=== PATIENT | male | born 1955 | race Caucasian/White ===

== ENCOUNTER 2019-09-11 13:17 | Inpatient (IN) ==
[2019-09-11] MEDS ORDERED: SODIUM CHLORIDE 0.9% 1,000 ML IV STA (14:31)
[2019-09-11] MEDS ORDERED: ONDANSETRON 4 MG/2 ML VIAL IV STA (14:31)
[2019-09-11] MEDS ORDERED: MORPHINE 4 MG/1 ML VIAL IV STA (14:31)
[2019-09-11 14:39] LABS: Basophils # 0.1 10*3/uL (0.0-0.2); Basophils % 0.9 % (0.0-0.8); Eosinophils % 0.2 % (0.00-10.9); Hematocrit 35.7 VOL% (42.0-52.0); Immature Granulocytes % 4.8 %; Immature Granulocytes Absolute 0.49 #; Lymphocytes # 1.8 10*3/uL (1.4-4.0); Mean Corpuscular HGB Conc 33.6 GM/DL (32-36); Mean Corpuscular Volume 88.8 FL (87-102); Monocytes % 10.7 % (1.7-12.7); Neutrophils % 65.4 % (38.7-73.9); Platelet Count 297 T/CUMM (130-400); Red Blood Count 4.02 MC/CUMM (3.8-5.5); Red Cell Distribution Width 13.3 % (9.3-17.3); White Blood Count 10.2 T/CUMM (4-12)
[2019-09-11 15:08] LABS: Albumin 2.4 G/DL (3.4-5.0); Bilirubin,Total 0.8 MG/DL (0.2-1.0); Calcium 9.4 MG/DL (8.5-10.1); Osmolality,Calculated 275.7 MOS/KG (273-304); Total Protein 7.2 G/DL (6.4-8.3)
[2019-09-11] MEDS ORDERED: ENOXAPARIN 100 MG/ML SYRINGE SUBCUT STA (18:12)
[2019-09-11] MEDS ORDERED: cefTRIAXone 1,000 MG in SODIUM CHLORIDE 0.9% 100 ML IV STA (18:12)
[2019-09-11] MEDS ORDERED: oxyCODONE/ACETAMINOPHEN 5-325 MG TABLET PO PRN (18:12)
[2019-09-11] MEDS ORDERED: ONDANSETRON 4 MG TABLET PO PRN (18:12)
[2019-09-11] MEDS ORDERED: DEXTROSE 50% 25 GM/50 ML VIAL IV PRN (20:43)
[2019-09-11] MEDS ORDERED: ONDANSETRON 4 MG/2 ML VIAL IV PRN (20:43)
[2019-09-11] MEDS ORDERED: ACETAMINOPHEN 325 MG TABLET PO PRN (20:43)
[2019-09-11] MEDS ORDERED: GLUCAGON 1 MG VIAL IM PRN (20:43)
[2019-09-11] MEDS ORDERED: SIMVASTATIN 80 MG TABLET PO SCH (21:00)
[2019-09-11] MEDS ORDERED: GLIMEPIRIDE 4 MG TABLET PO SCH (21:00)
[2019-09-11] MEDS: DOCUSATE SODIUM 100 MG CAPSULE PO SCH (21:33)
[2019-09-11] MEDS: MORPHINE 4 MG/1 ML VIAL IV PRN (21:33)
[2019-09-11] MEDS: INSULIN REGULAR 100 UNIT/ML SUBCUT SCH (21:36)
[2019-09-11] MEDS: CLINDAMYCIN INJ 900 MG in PREMIX 1 EACH IV SCH (23:36)
[2019-09-12] MEDS: CLINDAMYCIN INJ 900 MG in PREMIX 1 EACH IV SCH ×3 (05:41→21:45)
[2019-09-12] MEDS: INSULIN REGULAR 100 UNIT/ML SUBCUT SCH ×4 (08:33→21:10)
[2019-09-12] MEDS: DOCUSATE SODIUM 100 MG CAPSULE PO SCH ×2 (08:35→21:10)
[2019-09-12] MEDS: PANTOPRAZOLE 40 MG TABLET PO SCH (08:35)
[2019-09-12] MEDS: sitaGLIPtin 100 MG TABLET PO SCH (08:35)
[2019-09-12] MEDS: RIVAROXABAN 15 MG TABLET PO SCH ×2 (08:35→16:41)
[2019-09-12] MEDS ORDERED: lisinopriL 2.5 MG TABLET PO SCH (09:00)
[2019-09-12] MEDS ORDERED: FLUTICASONE 50 MCG NASAL SPRAY 16 GM BOTTLE BOTH NARES SCH (09:00)
[2019-09-12] MEDS ORDERED: TAMSULOSIN 0.4 MG CAPSULE PO SCH (09:00)
[2019-09-12] MEDS ORDERED: INSULIN GLARGINE 100 UNIT/ML SUBCUT SCH (09:00)
[2019-09-12] MEDS: MORPHINE 4 MG/1 ML VIAL IV PRN ×2 (12:57→21:19)
[2019-09-12] MEDS: cefTRIAXone 1,000 MG in SYRINGE 1 EACH IV SCH (21:10)
[2019-09-13] MEDS: CLINDAMYCIN INJ 900 MG in PREMIX 1 EACH IV SCH ×3 (06:12→21:46)
[2019-09-13] MEDS: MORPHINE 4 MG/1 ML VIAL IV PRN ×2 (06:13→20:07)
[2019-09-13] MEDS: INSULIN REGULAR 100 UNIT/ML SUBCUT SCH ×3 (08:12→16:05)
[2019-09-13] MEDS: sitaGLIPtin 100 MG TABLET PO SCH (08:35)
[2019-09-13] MEDS: DOCUSATE SODIUM 100 MG CAPSULE PO SCH ×2 (08:35→20:05)
[2019-09-13] MEDS: RIVAROXABAN 15 MG TABLET PO SCH ×2 (08:35→16:05)
[2019-09-13] MEDS: PANTOPRAZOLE 40 MG TABLET PO SCH (08:35)
[2019-09-13] MEDS ORDERED: OXYBUTYNIN 5 MG TABLET PO PRN (10:25)
[2019-09-13] MEDS: cefTRIAXone 1,000 MG in SYRINGE 1 EACH IV SCH (20:01)
[2019-09-14] MEDS: INSULIN REGULAR 100 UNIT/ML SUBCUT SCH ×5 (03:38→21:17)
[2019-09-14] MEDS: CLINDAMYCIN INJ 900 MG in PREMIX 1 EACH IV SCH ×3 (05:31→21:39)
[2019-09-14] MEDS: RIVAROXABAN 15 MG TABLET PO SCH ×2 (09:05→17:41)
[2019-09-14] MEDS: PANTOPRAZOLE 40 MG TABLET PO SCH (09:05)
[2019-09-14] MEDS: DOCUSATE SODIUM 100 MG CAPSULE PO SCH ×2 (09:05→21:14)
[2019-09-14] MEDS: sitaGLIPtin 100 MG TABLET PO SCH (09:05)
[2019-09-14 09:57] LABS: Basophils # 0.1 10*3/uL (0.0-0.2); Basophils % 0.8 % (0.0-0.8); Eosinophils # 0.1 10*3/uL (0.0-0.87); Eosinophils % 0.7 % (0.00-10.9); Hematocrit 26.6 VOL% (42.0-52.0); Hemoglobin 9.1 GM/DL (14.0-18.0); Immature Granulocytes % 7.1 %; Immature Granulocytes Absolute 0.82 #; Lymphocytes # 1.3 10*3/uL (1.4-4.0); Lymphocytes % 10.9 % (21.2-54.2); Mean Corpuscular HGB Conc 34.2 GM/DL (32-36); Mean Corpuscular Volume 87.2 FL (87-102); Mean Platelet Volume 11.1 FL (9.6-12.0); Monocytes % 11.9 % (1.7-12.7); Neutrophils % 68.6 % (38.7-73.9); Platelet Count 280 T/CUMM (130-400); Red Blood Count 3.05 MC/CUMM (3.8-5.5); Red Cell Distribution Width 13.4 % (9.3-17.3); White Blood Count 11.6 T/CUMM (4-12)
[2019-09-14 10:15] LABS: Albumin 1.9 G/DL (3.4-5.0); Bilirubin,Total 0.6 MG/DL (0.2-1.0); Calcium 8.4 MG/DL (8.5-10.1); Osmolality,Calculated 266.7 MOS/KG (273-304); Total Protein 6.2 G/DL (6.4-8.3)
[2019-09-14 10:16] LABS: Band Neutrophils 1 % (0-10); Hypochromasia 1+; Lymphocytes 15 % (20-55); Ovalocytes Slight; Platelet Estimate Adequate; Segmented Neutrophils 77 % (50-85); Total Cells Counted 100
[2019-09-14 18:25] LABS: Apearance,Urine Slightly Hazy (Clear); Bilirubin,Urine Negative (Negative); Blood, Urine Large mg/dL (Negative); Glucose,Urine (UA) >=500 mg/dL (Negative); Ketones,Urine 20 mg/dL (Negative); Mucus,Urine Occasional /LPF (Occasional); Nitrite,Urine Negative (Negative); Protein,Urine 100 MG/DL; RBC,Urine 2687 /HPF (0-4); Squamous Epithelial Cell,Urine Occasional /HPF (0-10); Urine Color Amber (Yellow); Urine Specific Gravity 1.023 (1.001-1.035)
[2019-09-14] MEDS: cefTRIAXone 1,000 MG in SYRINGE 1 EACH IV SCH (21:14)
[2019-09-14] MEDS: MORPHINE 4 MG/1 ML VIAL IV PRN (21:33)
[2019-09-15] MEDS: CLINDAMYCIN INJ 900 MG in PREMIX 1 EACH IV SCH ×3 (06:00→22:02)
[2019-09-15] MEDS: INSULIN REGULAR 100 UNIT/ML SUBCUT SCH ×4 (07:57→22:00)
[2019-09-15] MEDS: sitaGLIPtin 100 MG TABLET PO SCH (08:51)
[2019-09-15] MEDS: DOCUSATE SODIUM 100 MG CAPSULE PO SCH ×2 (08:52→20:15)
[2019-09-15] MEDS: PANTOPRAZOLE 40 MG TABLET PO SCH (08:52)
[2019-09-15] MEDS: RIVAROXABAN 15 MG TABLET PO SCH ×2 (08:52→16:42)
[2019-09-15] MEDS: MORPHINE 4 MG/1 ML VIAL IV PRN (13:37)
[2019-09-15] MEDS: cefTRIAXone 1,000 MG in SYRINGE 1 EACH IV SCH (20:16)
[2019-09-16] MEDS: CLINDAMYCIN INJ 900 MG in PREMIX 1 EACH IV SCH ×3 (06:07→21:30)
[2019-09-16 06:21] LABS: Basophils # 0.1 10*3/uL (0.0-0.2); Eosinophils # 0.1 10*3/uL (0.0-0.87); Eosinophils % 0.9 % (0.00-10.9); Hematocrit 25.9 VOL% (42.0-52.0); Hemoglobin 8.6 GM/DL (14.0-18.0); Immature Granulocytes % 7.2 %; Immature Granulocytes Absolute 0.82 #; Lymphocytes # 1.4 10*3/uL (1.4-4.0); Lymphocytes % 12.4 % (21.2-54.2); Mean Corpuscular HGB Conc 33.2 GM/DL (32-36); Mean Corpuscular Volume 89.3 FL (87-102); Mean Platelet Volume 11.4 FL (9.6-12.0); Monocytes % 11.6 % (1.7-12.7); Neutrophils % 66.9 % (38.7-73.9); Platelet Count 319 T/CUMM (130-400); Red Cell Distribution Width 13.1 % (9.3-17.3); White Blood Count 11.4 T/CUMM (4-12)
[2019-09-16 06:50] LABS: Band Neutrophils 1 % (0-10); Hypochromasia 1+; Lymphocytes 10 % (20-55); Osmolality,Calculated 270.2 MOS/KG (273-304); Ovalocytes Slight; Platelet Estimate Adequate; Segmented Neutrophils 75 % (50-85); Total Cells Counted 100
[2019-09-16 06:51] LABS: Microcytosis Slight
[2019-09-16] MEDS: INSULIN REGULAR 100 UNIT/ML SUBCUT SCH ×4 (08:36→20:14)
[2019-09-16] MEDS ORDERED: POTASSIUM CHLORIDE 20 MEQ TABLET PO PRN (08:37)
[2019-09-16] MEDS: DOCUSATE SODIUM 100 MG CAPSULE PO SCH ×2 (08:39→20:14)
[2019-09-16] MEDS: sitaGLIPtin 100 MG TABLET PO SCH (08:39)
[2019-09-16] MEDS: RIVAROXABAN 15 MG TABLET PO SCH (08:39)
[2019-09-16] MEDS: PANTOPRAZOLE 40 MG TABLET PO SCH (08:39)
[2019-09-16] MEDS: POLYETHYLENE GLYCOL POWDER 17 GM PACK PO SCH (08:41)
[2019-09-16] MEDS ORDERED: SODIUM CHLORIDE 0.9% 500 ML IV ONE (10:44)
[2019-09-16] MEDS ORDERED: PANTOPRAZOLE 40 MG VIAL IV ONE (11:18)
[2019-09-16] MEDS ORDERED: SODIUM CHLORIDE 0.9% 1,000 ML IV PRN ×2 (11:21→12:12)
[2019-09-16] MEDS: SODIUM CHLORIDE 0.9% 1,000 ML IV SCH ×3 (11:24→22:42)
[2019-09-16 11:40] LABS: Basophils # 0.1 10*3/uL (0.0-0.2); Basophils % 0.7 % (0.0-0.8); Eosinophils % 0.2 % (0.00-10.9); Hematocrit 23.9 VOL% (42.0-52.0); Hemoglobin 7.8 GM/DL (14.0-18.0); Immature Granulocytes % 6.2 %; Immature Granulocytes Absolute 0.99 #; Lymphocytes # 2.2 10*3/uL (1.4-4.0); Lymphocytes % 13.7 % (21.2-54.2); Mean Corpuscular HGB Conc 32.6 GM/DL (32-36); Mean Corpuscular Volume 89.8 FL (87-102); Mean Platelet Volume 11.4 FL (9.6-12.0); Monocytes % 10.2 % (1.7-12.7); Platelet Count 369 T/CUMM (130-400); Red Blood Count 2.66 MC/CUMM (3.8-5.5); Red Cell Distribution Width 13.2 % (9.3-17.3); White Blood Count 15.9 T/CUMM (4-12)
[2019-09-16] MEDS ORDERED: NOREPINEPHRINE 8 MG in SODIUM CHLORIDE 0.9% 242 ML IV PRN (11:58)
[2019-09-16] MEDS ORDERED: SODIUM CHLORIDE 0.9% 1,000 ML IV ONE (11:58)
[2019-09-16 12:06] LABS: Band Neutrophils 4 % (0-10); Eosinophils 1 % (0-10); Hypochromasia 1+; Lymphocytes 8 % (20-55); Metamyelocytes 1 %; Microcytosis Slight; Platelet Estimate Normal; Segmented Neutrophils 73 % (50-85); Total Cells Counted 100
[2019-09-16 12:07] LABS: Calcium 7.8 MG/DL (8.5-10.1); Osmolality,Calculated 275.2 MOS/KG (273-304)
[2019-09-16] MEDS: PANTOPRAZOLE INJ 200 MG in SODIUM CHLORIDE 0.9% 250 ML IV SCH (12:55)
[2019-09-16] MEDS ORDERED: PROTHROMBIN COMPLEX IV ONE (13:00)
[2019-09-16] MEDS ORDERED: EPINEPHrine 1 MG/ML VIAL ONE (15:06)
[2019-09-16] MEDS ORDERED: LIDOCAINE 2% 5 ML VIAL ONE (16:36)
[2019-09-16] MEDS ORDERED: SEVOFLURANE 1 UNIT/15 MINUTE INH ONE (16:36)
[2019-09-16] MEDS ORDERED: SUCCINYLCHOLINE 200 MG/10 ML VIAL ONE (16:38)
[2019-09-16] MEDS ORDERED: ONDANSETRON 4 MG/2 ML VIAL ONE (16:38)
[2019-09-16] MEDS ORDERED: MIDAZOLAM 2 MG/2 ML VIAL ONE (16:38)
[2019-09-16] MEDS ORDERED: fentaNYL 100 MCG/2 ML VIAL ONE (16:38)
[2019-09-16] MEDS ORDERED: ETOMIDATE 40 MG/20 ML VIAL IV ONE (16:38)
[2019-09-16] MEDS: METOCLOPRAMIDE 10 MG/2 ML VIAL IV SCH ×2 (18:25→23:53)
[2019-09-16 18:31] LABS: Hematocrit 36.9 VOL% (42.0-52.0)
[2019-09-16 18:32] LABS: Hemoglobin 12.5 GM/DL (14.0-18.0)
[2019-09-16] MEDS: MORPHINE 4 MG/1 ML VIAL IV PRN (18:50)
[2019-09-16] MEDS: cefTRIAXone 1,000 MG in SYRINGE 1 EACH IV SCH (20:13)
[2019-09-17] MEDS: MORPHINE 4 MG/1 ML VIAL IV PRN ×2 (00:21→23:09)
[2019-09-17] MEDS: SODIUM CHLORIDE 0.9% 1,000 ML IV SCH ×4 (02:53→21:40)
[2019-09-17] MEDS: CLINDAMYCIN INJ 900 MG in PREMIX 1 EACH IV SCH ×3 (06:00→21:40)
[2019-09-17] MEDS: METOCLOPRAMIDE 10 MG/2 ML VIAL IV SCH ×4 (06:20→23:45)
[2019-09-17] MEDS: INSULIN REGULAR 100 UNIT/ML SUBCUT SCH ×4 (07:55→20:19)
[2019-09-17] MEDS: POLYETHYLENE GLYCOL POWDER 17 GM PACK PO SCH (08:01)
[2019-09-17] MEDS: DOCUSATE SODIUM 100 MG CAPSULE PO SCH ×2 (08:01→20:19)
[2019-09-17] MEDS: sitaGLIPtin 100 MG TABLET PO SCH (08:01)
[2019-09-17 08:20] LABS: Basophils # 0.2 10*3/uL (0.0-0.2); Basophils % 0.7 % (0.0-0.8); Eosinophils % 0.1 % (0.00-10.9); Hematocrit 27.3 VOL% (42.0-52.0); Immature Granulocytes % 5.7 %; Immature Granulocytes Absolute 1.15 #; Lymphocytes # 2.3 10*3/uL (1.4-4.0); Lymphocytes % 11.3 % (21.2-54.2); Mean Corpuscular HGB Conc 33.7 GM/DL (32-36); Mean Corpuscular Volume 89.2 FL (87-102); Mean Platelet Volume 11.9 FL (9.6-12.0); Monocytes % 9.3 % (1.7-12.7); Neutrophils % 72.9 % (38.7-73.9); Red Blood Count 3.06 MC/CUMM (3.8-5.5)
[2019-09-17 08:24] LABS: Hemoglobin 9.2 GM/DL (14.0-18.0); Platelet Count 214 T/CUMM (130-400)
[2019-09-17 08:47] LABS: Band Neutrophils 3 % (0-10); Burr Cells Slight; Hypochromasia Slight; Lymphocytes 7 % (20-55); Metamyelocytes 1 %; Microcytosis Slight; Segmented Neutrophils 82 % (50-85); Total Cells Counted 100
[2019-09-17 08:49] LABS: Platelet Estimate Normal
[2019-09-17] MEDS: PANTOPRAZOLE INJ 200 MG in SODIUM CHLORIDE 0.9% 250 ML IV SCH (12:25)
[2019-09-17 17:09] LABS: Hematocrit 26.8 VOL% (42.0-52.0); Hemoglobin 9.1 GM/DL (14.0-18.0)
[2019-09-17 17:26] LABS: INR 1.2; PT Patient Result 12.9 SECS (9.8-11.9)
[2019-09-17] MEDS: cefTRIAXone 1,000 MG in SYRINGE 1 EACH IV SCH (20:10)
[2019-09-17 23:59] LABS: Hematocrit 28.4 VOL% (42.0-52.0); Hemoglobin 9.5 GM/DL (14.0-18.0)
[2019-09-18 05:22] LABS: Basophils # 0.1 10*3/uL (0.0-0.2); Basophils % 0.7 % (0.0-0.8); Eosinophils # 0.1 10*3/uL (0.0-0.87); Eosinophils % 0.5 % (0.00-10.9); Immature Granulocytes % 5.1 %; Immature Granulocytes Absolute 0.83 #; Lymphocytes # 2.6 10*3/uL (1.4-4.0); Lymphocytes % 16.1 % (21.2-54.2); Mean Corpuscular HGB Conc 33.3 GM/DL (32-36); Mean Corpuscular Volume 88.5 FL (87-102); Mean Platelet Volume 11.3 FL (9.6-12.0); Monocytes % 7.4 % (1.7-12.7); Neutrophils % 70.2 % (38.7-73.9); Platelet Count 197 T/CUMM (130-400); Red Blood Count 3.39 MC/CUMM (3.8-5.5); Red Cell Distribution Width 15.1 % (9.3-17.3); White Blood Count 16.1 T/CUMM (4-12)
[2019-09-18] MEDS: SODIUM CHLORIDE 0.9% 1,000 ML IV SCH ×2 (05:30→10:37)
[2019-09-18 05:32] LABS: Calcium 7.2 MG/DL (8.5-10.1); Osmolality,Calculated 278.5 MOS/KG (273-304)
[2019-09-18] MEDS: METOCLOPRAMIDE 10 MG/2 ML VIAL IV SCH ×4 (05:52→23:37)
[2019-09-18] MEDS: CLINDAMYCIN INJ 900 MG in PREMIX 1 EACH IV SCH ×3 (05:52→22:42)
[2019-09-18 07:47] LABS: Band Neutrophils 1 % (0-10); Lymphocytes 15 % (20-55); Platelet Estimate Normal; Segmented Neutrophils 78 % (50-85); Total Cells Counted 100
[2019-09-18 07:48] LABS: Anisocytosis 1+; Microcytosis 1+
[2019-09-18] MEDS: sitaGLIPtin 100 MG TABLET PO SCH (08:27)
[2019-09-18] MEDS: DOCUSATE SODIUM 100 MG CAPSULE PO SCH ×2 (08:27→20:45)
[2019-09-18] MEDS: POLYETHYLENE GLYCOL POWDER 17 GM PACK PO SCH (08:27)
[2019-09-18] MEDS: INSULIN REGULAR 100 UNIT/ML SUBCUT SCH ×4 (08:39→20:37)
[2019-09-18 12:42] LABS: Hematocrit 27.9 VOL% (42.0-52.0); Hemoglobin 9.7 GM/DL (14.0-18.0)
[2019-09-18 16:16] LABS: Hematocrit 31.9 VOL% (42.0-52.0); Hemoglobin 10.9 GM/DL (14.0-18.0)
[2019-09-18] MEDS: PANTOPRAZOLE 40 MG TABLET PO SCH (18:15)
[2019-09-18] MEDS: cefTRIAXone 1,000 MG in SYRINGE 1 EACH IV SCH (20:08)
[2019-09-19] MEDS: SODIUM CHLORIDE 0.9% 1,000 ML IV SCH ×3 (06:25→22:20)
[2019-09-19] MEDS: METOCLOPRAMIDE 10 MG/2 ML VIAL IV SCH ×4 (06:25→23:31)
[2019-09-19] MEDS: PANTOPRAZOLE 40 MG TABLET PO SCH ×2 (06:25→18:20)
[2019-09-19] MEDS: CLINDAMYCIN INJ 900 MG in PREMIX 1 EACH IV SCH ×3 (06:36→22:30)
[2019-09-19 06:54] LABS: Basophils # 0.1 10*3/uL (0.0-0.2); Basophils % 0.7 % (0.0-0.8); Eosinophils # 0.1 10*3/uL (0.0-0.87); Eosinophils % 0.5 % (0.00-10.9); Hemoglobin 9.8 GM/DL (14.0-18.0); Immature Granulocytes % 4.8 %; Immature Granulocytes Absolute 0.55 #; Lymphocytes # 1.6 10*3/uL (1.4-4.0); Lymphocytes % 14.3 % (21.2-54.2); Mean Corpuscular Volume 85.4 FL (87-102); Mean Platelet Volume 11.3 FL (9.6-12.0); Monocytes % 8.7 % (1.7-12.7); Platelet Count 209 T/CUMM (130-400); Red Blood Count 3.28 MC/CUMM (3.8-5.5); Red Cell Distribution Width 14.6 % (9.3-17.3); White Blood Count 11.4 T/CUMM (4-12)
[2019-09-19 08:21] LABS: Band Neutrophils 1 % (0-10); Eosinophils 1 % (0-10); Lymphocytes 5 % (20-55); Metamyelocytes 2 %; Microcytosis 2+; Platelet Estimate Normal; Segmented Neutrophils 86 % (50-85); Total Cells Counted 100
[2019-09-19 08:22] LABS: Polychromasia Slight
[2019-09-19] MEDS: DOCUSATE SODIUM 100 MG CAPSULE PO SCH ×2 (09:01→21:49)
[2019-09-19] MEDS: POLYETHYLENE GLYCOL POWDER 17 GM PACK PO SCH (09:01)
[2019-09-19] MEDS: sitaGLIPtin 100 MG TABLET PO SCH (09:01)
[2019-09-19] MEDS: INSULIN REGULAR 100 UNIT/ML SUBCUT SCH ×4 (09:01→22:02)
[2019-09-19] MEDS ORDERED: PANTOPRAZOLE 40 MG VIAL IV SCH (21:00)
[2019-09-19] MEDS: cefTRIAXone 1,000 MG in SYRINGE 1 EACH IV SCH (23:28)
[2019-09-20] MEDS: CLINDAMYCIN INJ 900 MG in PREMIX 1 EACH IV SCH ×3 (06:01→23:27)
[2019-09-20] MEDS: PANTOPRAZOLE 40 MG TABLET PO SCH ×2 (06:01→18:10)
[2019-09-20] MEDS: METOCLOPRAMIDE 10 MG/2 ML VIAL IV SCH ×3 (06:04→18:10)
[2019-09-20 08:35] LABS: Basophils # 0.1 10*3/uL (0.0-0.2); Eosinophils % 0.4 % (0.00-10.9); Hematocrit 30.6 VOL% (42.0-52.0); Hemoglobin 10.3 GM/DL (14.0-18.0); Immature Granulocytes % 4.9 %; Immature Granulocytes Absolute 0.48 #; Lymphocytes # 1.5 10*3/uL (1.4-4.0); Lymphocytes % 15.6 % (21.2-54.2); Mean Corpuscular HGB Conc 33.7 GM/DL (32-36); Mean Corpuscular Volume 88.2 FL (87-102); Mean Platelet Volume 11.6 FL (9.6-12.0); Monocytes % 9.7 % (1.7-12.7); Neutrophils % 68.4 % (38.7-73.9); Platelet Count 245 T/CUMM (130-400); Red Blood Count 3.47 MC/CUMM (3.8-5.5); Red Cell Distribution Width 14.3 % (9.3-17.3); White Blood Count 9.7 T/CUMM (4-12)
[2019-09-20] MEDS: sitaGLIPtin 100 MG TABLET PO SCH (09:14)
[2019-09-20] MEDS: DOCUSATE SODIUM 100 MG CAPSULE PO SCH ×2 (09:14→21:15)
[2019-09-20] MEDS: INSULIN REGULAR 100 UNIT/ML SUBCUT SCH ×4 (09:15→21:15)
[2019-09-20] MEDS: POLYETHYLENE GLYCOL POWDER 17 GM PACK PO SCH (09:15)
[2019-09-20] MEDS: SODIUM CHLORIDE 0.9% 1,000 ML IV SCH (14:45)
[2019-09-20] MEDS ORDERED: ZALEPLON 5 MG CAPSULE PO SCH (21:00)
[2019-09-21] MEDS: METOCLOPRAMIDE 10 MG/2 ML VIAL IV SCH ×2 (00:15→05:25)
[2019-09-21] MEDS: SODIUM CHLORIDE 0.9% 1,000 ML IV SCH ×2 (05:24→05:26)
[2019-09-21] MEDS: PANTOPRAZOLE 40 MG TABLET PO SCH ×2 (05:27→08:15)
[2019-09-21] MEDS: CLINDAMYCIN INJ 900 MG in PREMIX 1 EACH IV SCH (05:34)
[2019-09-21 05:52] LABS: Basophils # 0.1 10*3/uL (0.0-0.2); Eosinophils # 0.1 10*3/uL (0.0-0.87); Eosinophils % 0.8 % (0.00-10.9); Hematocrit 29.4 VOL% (42.0-52.0); Hemoglobin 10.2 GM/DL (14.0-18.0); Immature Granulocytes % 3.7 %; Immature Granulocytes Absolute 0.29 #; Lymphocytes # 1.6 10*3/uL (1.4-4.0); Lymphocytes % 19.9 % (21.2-54.2); Mean Corpuscular HGB Conc 34.7 GM/DL (32-36); Mean Corpuscular Volume 86.7 FL (87-102); Mean Platelet Volume 11.4 FL (9.6-12.0); Monocytes % 11.1 % (1.7-12.7); Neutrophils % 63.5 % (38.7-73.9); Platelet Count 228 T/CUMM (130-400); Red Blood Count 3.39 MC/CUMM (3.8-5.5); Red Cell Distribution Width 14.5 % (9.3-17.3); White Blood Count 7.9 T/CUMM (4-12)
[2019-09-21 06:17] LABS: Calcium 7.7 MG/DL (8.5-10.1)
[2019-09-21] MEDS: INSULIN REGULAR 100 UNIT/ML SUBCUT SCH (07:52)
[2019-09-21] MEDS: DOCUSATE SODIUM 100 MG CAPSULE PO SCH (08:15)
[2019-09-21] MEDS: sitaGLIPtin 100 MG TABLET PO SCH (08:15)
[2019-09-21] MEDS: POLYETHYLENE GLYCOL POWDER 17 GM PACK PO SCH (08:15)
[2019-09-21 08:22] VITALS: BP 119/73
== END 2019-09-21 10:58 | disposition home or self-care (01) | DRG 166 ==
LOC: N.ED 13:17 → N.EDINP 18:02 → N.TELES 18:39 → N.ICU 09-16 11:39 → N.TELEN 09-18 15:52
PROVIDERS: ADMIT Internal Medicine; ATTEND Internal Medicine

== ENCOUNTER 2020-02-18 17:22 | Observation (INO) ==
[2020-02-18 20:20] LABS: Basophils % 0.7 % (0.0-0.8); Eosinophils # 0.5 10*3/uL (0.0-0.87); Eosinophils % 8.4 % (0.00-10.9); Hematocrit 25.7 VOL% (42.0-52.0); Hemoglobin 8.5 GM/DL (14.0-18.0); Immature Granulocytes % 0.5 %; Immature Granulocytes Absolute 0.03 #; Lymphocytes % 18.4 % (21.2-54.2); Mean Corpuscular HGB Conc 33.1 GM/DL (32-36); Mean Corpuscular Volume 92.1 FL (87-102); Mean Platelet Volume 10.2 FL (9.6-12.0); Platelet Count 209 T/CUMM (130-400); Red Blood Count 2.79 MC/CUMM (3.8-5.5); Red Cell Distribution Width 15.6 % (9.3-17.3); White Blood Count 5.5 T/CUMM (4-12)
[2020-02-18 20:39] LABS: Albumin 2.9 G/DL (3.4-5.0); Bilirubin,Total 0.4 MG/DL (0.2-1.0); Calcium 8.2 MG/DL (8.5-10.1); Osmolality,Calculated 278.4 MOS/KG (273-304); Total Protein 6.7 G/DL (6.4-8.3)
[2020-02-18 20:44] LABS: Eosinophils 7 % (0-10); Lymphocytes 16 % (20-55); Macrocytosis 1+; Microcytosis 1+; Platelet Estimate Adequate; Segmented Neutrophils 67 % (50-85); Spherocytes 1+; Total Cells Counted 100
[2020-02-18] MEDS ORDERED: ACETAMINOPHEN 325 MG TABLET PO PRN (23:56)
[2020-02-18] MEDS ORDERED: DEXTROSE 50% 25 GM/50 ML VIAL IV PRN (23:56)
[2020-02-18] MEDS ORDERED: Insulin Glargine [Basaglar Kwikpen U-100 Insulin] 100 unit/mL SUBCUT PRN (23:56)
[2020-02-18] MEDS ORDERED: ONDANSETRON ODT 4 MG TABLET PO PRN (23:56)
[2020-02-18] MEDS ORDERED: HYDROmorphone 2 MG/1 ML VIAL IV PRN (23:56)
[2020-02-18] MEDS ORDERED: GLUCAGON 1 MG VIAL IM PRN (23:56)
[2020-02-18] MEDS ORDERED: ONDANSETRON 4 MG/2 ML VIAL IV PRN (23:56)
[2020-02-19] MEDS: INSULIN REGULAR 100 UNIT/ML SUBCUT SCH ×4 (01:59→19:06)
[2020-02-19] MEDS: SODIUM CHLORIDE 0.9% 1,000 ML IV SCH (02:25)
[2020-02-19 06:02] LABS: Basophils % 0.7 % (0.0-0.8); Eosinophils # 0.5 10*3/uL (0.0-0.87); Eosinophils % 11.1 % (0.00-10.9); Hematocrit 24.2 VOL% (42.0-52.0); Hemoglobin 7.7 GM/DL (14.0-18.0); Immature Granulocytes % 0.5 %; Immature Granulocytes Absolute 0.02 #; Lymphocytes # 0.9 10*3/uL (1.4-4.0); Lymphocytes % 22.1 % (21.2-54.2); Mean Corpuscular HGB Conc 31.8 GM/DL (32-36); Mean Corpuscular Volume 94.9 FL (87-102); Mean Platelet Volume 10.1 FL (9.6-12.0); Monocytes % 12.7 % (1.7-12.7); Neutrophils % 52.9 % (38.7-73.9); Platelet Count 187 T/CUMM (130-400); Red Blood Count 2.55 MC/CUMM (3.8-5.5); Red Cell Distribution Width 15.5 % (9.3-17.3); White Blood Count 4.2 T/CUMM (4-12)
[2020-02-19 06:26] LABS: Band Neutrophils 3 % (0-10); Eosinophils 14 % (0-10); Lymphocytes 16 % (20-55); Nucleated Red Blood Cells 1 (0-5); Platelet Estimate Normal; Segmented Neutrophils 57 % (50-85); Total Cells Counted 100
[2020-02-19 06:27] LABS: Anisocytosis 2+; Macrocytosis 1+; Poikilocytosis Slight
[2020-02-19 06:29] LABS: Alanine Aminotransferase < 9 U/L (16-61); Albumin 2.6 G/DL (3.4-5.0); Alkaline Phosphatase 80 U/L (45-117); Aspartate Amino Transferase 15 U/L (0-37); Blood Urea Nitrogen 9 MG/DL (7-18); Calcium 8.2 MG/DL (8.5-10.1); Estimated Glom Filtration Rate 100 ML/MIN; Glucose 91 MG/DL (74-106); Osmolality,Calculated 277.4 MOS/KG (273-304); Total Protein 5.9 G/DL (6.4-8.3)
[2020-02-19] MEDS ORDERED: POTASSIUM CHLORIDE RIDER 10 MEQ in PREMIX 1 EACH IV PRN (08:01)
[2020-02-19] MEDS ORDERED: SODIUM CHLORIDE 0.9% 1,000 ML IV PRN (08:02)
[2020-02-19] MEDS ORDERED: FUROSEMIDE 40 MG/4 ML VIAL IM ONE (08:17)
[2020-02-19] MEDS ORDERED: PANTOPRAZOLE 40 MG TABLET PO SCH (09:00)
[2020-02-19] MEDS: PANTOPRAZOLE 40 MG VIAL IV SCH (10:06)
[2020-02-19] MEDS: APIXABAN 5 MG TABLET PO SCH ×2 (10:07→20:51)
[2020-02-19] MEDS: DOCUSATE SODIUM 100 MG CAPSULE PO SCH ×2 (10:11→20:51)
[2020-02-19] MEDS: sitaGLIPtin 100 MG TABLET PO SCH (10:12)
[2020-02-19] MEDS: POTASSIUM CHLORIDE RIDER 20 MEQ in PREMIX 1 EACH IV PRN ×2 (10:12→21:38)
[2020-02-19] MEDS: FLUTICASONE 50 MCG NASAL SPRAY 16 GM BOTTLE BOTH NARES SCH (10:13)
[2020-02-19] MEDS: VANCOMYCIN 50 MG/ML 60 ML/BOTTLE PO SCH ×4 (10:20→20:51)
[2020-02-19] MEDS ORDERED: FUROSEMIDE 40 MG/4 ML VIAL IV ONE (15:04)
[2020-02-19 20:03] LABS: Bacteria,Urine Occasional /HPF (Few); Bilirubin,Urine Negative (Negative); Blood, Urine Negative (Negative); Glucose,Urine (UA) 50 mg/dL (Negative); Ketones,Urine Negative (Negative); Mucus,Urine Occasional /LPF (Occasional); Nitrite,Urine Negative (Negative); Protein,Urine Negative; RBC,Urine 1 /HPF (0-4); Urine Appearance CLEAR (Clear); Urine Color Yellow (Yellow); Urine Specific Gravity 1.012 (1.001-1.035); WBC,Urine <1 /HPF (0-6)
[2020-02-19 23:39] LABS: Hematocrit 31.1 VOL% (42.0-52.0)
[2020-02-19 23:48] LABS: Hemoglobin 10.8 GM/DL (14.0-18.0)
[2020-02-20] MEDS: INSULIN REGULAR 100 UNIT/ML SUBCUT SCH ×3 (01:01→12:24)
[2020-02-20] MEDS: SODIUM CHLORIDE 0.9% 1,000 ML IV SCH ×2 (01:48→12:26)
[2020-02-20 06:46] LABS: Basophils % 0.6 % (0.0-0.8); Eosinophils # 0.5 10*3/uL (0.0-0.87); Eosinophils % 9.8 % (0.00-10.9); Hematocrit 29.8 VOL% (42.0-52.0); Hemoglobin 10.1 GM/DL (14.0-18.0); Immature Granulocytes % 0.6 %; Immature Granulocytes Absolute 0.03 #; Lymphocytes # 0.9 10*3/uL (1.4-4.0); Mean Corpuscular HGB Conc 33.9 GM/DL (32-36); Mean Corpuscular Volume 90.3 FL (87-102); Mean Platelet Volume 10.1 FL (9.6-12.0); Monocytes % 11.7 % (1.7-12.7); Neutrophils % 59.3 % (38.7-73.9); Platelet Count 171 T/CUMM (130-400); Red Cell Distribution Width 15.7 % (9.3-17.3); White Blood Count 4.9 T/CUMM (4-12)
[2020-02-20 08:08] LABS: Calcium 8.5 MG/DL (8.5-10.1); Osmolality,Calculated 272.7 MOS/KG (273-304)
[2020-02-20] MEDS: FLUTICASONE 50 MCG NASAL SPRAY 16 GM BOTTLE BOTH NARES SCH (08:11)
[2020-02-20] MEDS: APIXABAN 5 MG TABLET PO SCH (08:12)
[2020-02-20] MEDS: PANTOPRAZOLE 40 MG VIAL IV SCH (08:13)
[2020-02-20] MEDS: sitaGLIPtin 100 MG TABLET PO SCH ×2 (08:13→12:29)
[2020-02-20] MEDS: DOCUSATE SODIUM 100 MG CAPSULE PO SCH (08:14)
[2020-02-20] MEDS: VANCOMYCIN 50 MG/ML 60 ML/BOTTLE PO SCH ×2 (08:16→12:25)
[2020-02-20 12:22] VITALS: BP 126/76
[2020-02-20] MEDS ORDERED: HEPARIN LOCK FLUSH 500 UNIT/5 ML SYRINGE IV ONE (13:56)
== END 2020-02-20 14:41 | disposition home or self-care (01) ==
LOC: N.EDINP 17:22 → N.ED 17:22 → N.4E 22:44
PROVIDERS: ADMIT Internal Medicine; ATTEND Internal Medicine

== ENCOUNTER 2020-03-10 13:02 | Inpatient (IN) ==
[2020-03-10] MEDS ORDERED: SODIUM CHLORIDE 0.9% 1,000 ML IV STA (13:48)
[2020-03-10 14:23] LABS: Basophils # 0.1 10*3/uL (0.0-0.2); Basophils % 1.2 % (0.0-0.8); Eosinophils # 0.2 10*3/uL (0.0-0.87); Eosinophils % 3.1 % (0.00-10.9); Hematocrit 30.1 VOL% (42.0-52.0); Hemoglobin 9.9 GM/DL (14.0-18.0); Immature Granulocytes % 0.9 %; Immature Granulocytes Absolute 0.05 #; Lymphocytes # 0.4 10*3/uL (1.4-4.0); Lymphocytes % 6.7 % (21.2-54.2); Mean Corpuscular HGB Conc 32.9 GM/DL (32-36); Mean Corpuscular Volume 91.5 FL (87-102); Mean Platelet Volume 10.3 FL (9.6-12.0); Monocytes % 11.4 % (1.7-12.7); Neutrophils % 76.7 % (38.7-73.9); Platelet Count 246 T/CUMM (130-400); Red Blood Count 3.29 MC/CUMM (3.8-5.5); Red Cell Distribution Width 15.1 % (9.3-17.3); White Blood Count 5.8 T/CUMM (4-12)
[2020-03-10 14:34] LABS: INR 1.2; PT Patient Result 12.4 SECS (9.8-11.9)
[2020-03-10 14:35] LABS: Albumin 2.9 G/DL (3.4-5.0); Bilirubin,Total 0.7 MG/DL (0.2-1.0); Calcium 8.8 MG/DL (8.5-10.1); Osmolality,Calculated 274.8 MOS/KG (273-304); Total Protein 7.1 G/DL (6.4-8.3)
[2020-03-10] MEDS ORDERED: ONDANSETRON 4 MG/2 ML VIAL IV STA (15:31)
[2020-03-10] MEDS ORDERED: HYDROmorphone 2 MG/1 ML VIAL IV STA (15:31)
[2020-03-10] MEDS ORDERED: ACETAMINOPHEN 325 MG TABLET PO PRN (16:53)
[2020-03-10] MEDS ORDERED: ONDANSETRON 4 MG/2 ML VIAL IV PRN (16:53)
[2020-03-10] MEDS ORDERED: VANCOMYCIN 50 MG/ML 60 ML/BOTTLE PO SCH (17:00)
[2020-03-10] MEDS: SODIUM CHLORIDE 0.9% 1,000 ML IV SCH (18:33)
[2020-03-10] MEDS: DOCUSATE SODIUM 100 MG CAPSULE PO SCH (20:01)
[2020-03-10] MEDS: VANCOMYCIN 50 MG/ML 60 ML/BOTTLE PO SCH (21:14)
[2020-03-10] MEDS: HYDROmorphone 2 MG/1 ML VIAL IV PRN (21:16)
[2020-03-10 22:26] LABS: Hematocrit 27.3 VOL% (42.0-52.0); Hemoglobin 8.9 GM/DL (14.0-18.0)
[2020-03-11 05:21] LABS: Basophils # 0.1 10*3/uL (0.0-0.2); Basophils % 1.1 % (0.0-0.8); Eosinophils # 0.3 10*3/uL (0.0-0.87); Eosinophils % 6.7 % (0.00-10.9); Hematocrit 27.5 VOL% (42.0-52.0); Immature Granulocytes % 0.9 %; Immature Granulocytes Absolute 0.04 #; Lymphocytes # 0.3 10*3/uL (1.4-4.0); Lymphocytes % 7.4 % (21.2-54.2); Mean Corpuscular HGB Conc 32.7 GM/DL (32-36); Mean Corpuscular Volume 92.6 FL (87-102); Mean Platelet Volume 10.2 FL (9.6-12.0); Monocytes % 12.8 % (1.7-12.7); Neutrophils % 71.1 % (38.7-73.9); Platelet Count 186 T/CUMM (130-400); Red Blood Count 2.97 MC/CUMM (3.8-5.5); White Blood Count 4.6 T/CUMM (4-12)
[2020-03-11 05:47] LABS: Alanine Aminotransferase < 9 U/L (16-61); Albumin 2.5 G/DL (3.4-5.0); Alkaline Phosphatase 120 U/L (45-117); Aspartate Amino Transferase 15 U/L (0-37); Blood Urea Nitrogen 10 MG/DL (7-18); Calcium 8.3 MG/DL (8.5-10.1); Estimated Glom Filtration Rate 107 ML/MIN; Glucose 92 MG/DL (74-106); Osmolality,Calculated 273.7 MOS/KG (273-304); Total Protein 6.1 G/DL (6.4-8.3)
[2020-03-11] MEDS: SODIUM CHLORIDE 0.9% 1,000 ML IV SCH ×3 (06:59→20:24)
[2020-03-11] MEDS: DOCUSATE SODIUM 100 MG CAPSULE PO SCH ×2 (08:18→20:24)
[2020-03-11] MEDS: PANTOPRAZOLE 40 MG TABLET PO SCH (08:18)
[2020-03-11] MEDS: VANCOMYCIN 50 MG/ML 60 ML/BOTTLE PO SCH ×4 (08:18→20:24)
[2020-03-11] MEDS ORDERED: MAGNESIUM SULF RIDER 4 GM in PREMIX 1 EACH IV PRN (09:51)
[2020-03-11] MEDS: MAGNESIUM SULF RIDER 2 GM in PREMIX 1 EACH IV PRN (10:18)
[2020-03-11] MEDS: HYDROmorphone 2 MG/1 ML VIAL IV PRN ×2 (10:23→20:31)
[2020-03-12] MEDS: HYDROmorphone 2 MG/1 ML VIAL IV PRN ×3 (04:00→18:32)
[2020-03-12] MEDS: SODIUM CHLORIDE 0.9% 1,000 ML IV SCH ×3 (04:02→20:46)
[2020-03-12 06:32] LABS: Eosinophils # 0.3 10*3/uL (0.0-0.87); Eosinophils % 7.2 % (0.00-10.9); Hematocrit 26.6 VOL% (42.0-52.0); Hemoglobin 8.7 GM/DL (14.0-18.0); Immature Granulocytes Absolute 0.04 #; Lymphocytes # 0.4 10*3/uL (1.4-4.0); Lymphocytes % 10.2 % (21.2-54.2); Mean Corpuscular HGB Conc 32.7 GM/DL (32-36); Mean Platelet Volume 10.4 FL (9.6-12.0); Monocytes % 14.9 % (1.7-12.7); Neutrophils % 65.7 % (38.7-73.9); Platelet Count 184 T/CUMM (130-400); Red Blood Count 2.89 MC/CUMM (3.8-5.5); Red Cell Distribution Width 14.8 % (9.3-17.3)
[2020-03-12 06:42] LABS: Alanine Aminotransferase < 9 U/L (16-61); Albumin 2.3 G/DL (3.4-5.0); Alkaline Phosphatase 110 U/L (45-117); Aspartate Amino Transferase 18 U/L (0-37); Blood Urea Nitrogen 7 MG/DL (7-18); Calcium 7.8 MG/DL (8.5-10.1); Estimated Glom Filtration Rate 114 ML/MIN; Glucose 101 MG/DL (74-106); Osmolality,Calculated 276.4 MOS/KG (273-304); Total Protein 5.7 G/DL (6.4-8.3)
[2020-03-12] MEDS: DOCUSATE SODIUM 100 MG CAPSULE PO SCH ×2 (09:16→20:47)
[2020-03-12] MEDS: PANTOPRAZOLE 40 MG TABLET PO SCH (09:23)
[2020-03-12] MEDS: VANCOMYCIN 50 MG/ML 60 ML/BOTTLE PO SCH ×4 (09:24→20:45)
[2020-03-13] MEDS: HYDROmorphone 2 MG/1 ML VIAL IV PRN ×3 (00:24→20:42)
[2020-03-13] MEDS: SODIUM CHLORIDE 0.9% 1,000 ML IV SCH ×3 (04:00→23:15)
[2020-03-13 06:23] LABS: Eosinophils # 0.3 10*3/uL (0.0-0.87); Eosinophils % 8.1 % (0.00-10.9); Hematocrit 27.1 VOL% (42.0-52.0); Hemoglobin 8.6 GM/DL (14.0-18.0); Immature Granulocytes % 0.7 %; Immature Granulocytes Absolute 0.03 #; Lymphocytes # 0.4 10*3/uL (1.4-4.0); Lymphocytes % 10.8 % (21.2-54.2); Mean Corpuscular HGB Conc 31.7 GM/DL (32-36); Mean Corpuscular Volume 94.1 FL (87-102); Mean Platelet Volume 10.1 FL (9.6-12.0); Monocytes % 15.3 % (1.7-12.7); Neutrophils % 64.1 % (38.7-73.9); Platelet Count 158 T/CUMM (130-400); Red Blood Count 2.88 MC/CUMM (3.8-5.5); Red Cell Distribution Width 14.8 % (9.3-17.3); White Blood Count 4.1 T/CUMM (4-12)
[2020-03-13 06:43] LABS: Alanine Aminotransferase 9 U/L (16-61); Albumin 2.2 G/DL (3.4-5.0); Alkaline Phosphatase 117 U/L (45-117); Aspartate Amino Transferase 18 U/L (0-37); Bilirubin,Total < 0.39 MG/DL (0.2-1.0); Blood Urea Nitrogen 5 MG/DL (7-18); Calcium 7.9 MG/DL (8.5-10.1); Estimated Glom Filtration Rate 114 ML/MIN; Glucose 107 MG/DL (74-106); Osmolality,Calculated 277.3 MOS/KG (273-304); Total Protein 5.8 G/DL (6.4-8.3)
[2020-03-13] MEDS: PANTOPRAZOLE 40 MG TABLET PO SCH (08:38)
[2020-03-13] MEDS: VANCOMYCIN 50 MG/ML 60 ML/BOTTLE PO SCH ×4 (08:39→20:42)
[2020-03-13] MEDS: DOCUSATE SODIUM 100 MG CAPSULE PO SCH (08:41)
[2020-03-13] MEDS: MAGNESIUM SULF RIDER 2 GM in PREMIX 1 EACH IV PRN (08:43)
[2020-03-13] MEDS ORDERED: diphenhydrAMINE 50 MG/1 ML VIAL IV PRN (13:23)
[2020-03-13] MEDS: TRIAMCINOLONE 0.1% CREAM 15 GM TUBE TOP SCH ×2 (15:57→20:25)
[2020-03-14] MEDS: DOCUSATE SODIUM 100 MG CAPSULE PO SCH ×3 (01:20→21:15)
[2020-03-14] MEDS: HYDROmorphone 2 MG/1 ML VIAL IV PRN ×4 (05:13→22:53)
[2020-03-14 09:03] LABS: Basophils # 0.1 10*3/uL (0.0-0.2); Basophils % 1.1 % (0.0-0.8); Eosinophils # 0.3 10*3/uL (0.0-0.87); Eosinophils % 6.6 % (0.00-10.9); Hematocrit 28.3 VOL% (42.0-52.0); Hemoglobin 9.2 GM/DL (14.0-18.0); Immature Granulocytes % 0.6 %; Immature Granulocytes Absolute 0.03 #; Lymphocytes # 0.5 10*3/uL (1.4-4.0); Lymphocytes % 11.5 % (21.2-54.2); Mean Corpuscular HGB Conc 32.5 GM/DL (32-36); Mean Platelet Volume 10.2 FL (9.6-12.0); Monocytes % 12.8 % (1.7-12.7); Neutrophils % 67.4 % (38.7-73.9); Platelet Count 181 T/CUMM (130-400); Red Blood Count 3.11 MC/CUMM (3.8-5.5); Red Cell Distribution Width 14.9 % (9.3-17.3); White Blood Count 4.7 T/CUMM (4-12)
[2020-03-14 09:20] LABS: Calcium 7.7 MG/DL (8.5-10.1); Osmolality,Calculated 279.3 MOS/KG (273-304)
[2020-03-14] MEDS: VANCOMYCIN 50 MG/ML 60 ML/BOTTLE PO SCH ×4 (09:20→21:15)
[2020-03-14] MEDS: PANTOPRAZOLE 40 MG TABLET PO SCH (09:20)
[2020-03-14] MEDS: TRIAMCINOLONE 0.1% CREAM 15 GM TUBE TOP SCH ×3 (09:21→21:15)
[2020-03-14] MEDS: SODIUM CHLORIDE 0.9% 1,000 ML IV SCH ×3 (12:22→21:15)
[2020-03-15] MEDS: SODIUM CHLORIDE 0.9% 1,000 ML IV SCH (03:56)
[2020-03-15 05:24] LABS: Basophils # 0.1 10*3/uL (0.0-0.2); Basophils % 1.1 % (0.0-0.8); Eosinophils # 0.4 10*3/uL (0.0-0.87); Eosinophils % 7.9 % (0.00-10.9); Hematocrit 27.5 VOL% (42.0-52.0); Hemoglobin 9.1 GM/DL (14.0-18.0); Immature Granulocytes % 1.1 %; Immature Granulocytes Absolute 0.05 #; Lymphocytes # 0.4 10*3/uL (1.4-4.0); Mean Corpuscular HGB Conc 33.1 GM/DL (32-36); Mean Corpuscular Volume 90.5 FL (87-102); Monocytes % 15.4 % (1.7-12.7); Neutrophils % 65.5 % (38.7-73.9); Platelet Count 170 T/CUMM (130-400); Red Blood Count 3.04 MC/CUMM (3.8-5.5); Red Cell Distribution Width 14.8 % (9.3-17.3); White Blood Count 4.7 T/CUMM (4-12)
[2020-03-15 05:53] LABS: Calcium 7.9 MG/DL (8.5-10.1); Osmolality,Calculated 276.3 MOS/KG (273-304)
[2020-03-15] MEDS: HYDROmorphone 2 MG/1 ML VIAL IV PRN (06:45)
[2020-03-15] MEDS: PANTOPRAZOLE 40 MG TABLET PO SCH (09:31)
[2020-03-15] MEDS: VANCOMYCIN 50 MG/ML 60 ML/BOTTLE PO SCH (09:31)
[2020-03-15] MEDS: DOCUSATE SODIUM 100 MG CAPSULE PO SCH (09:35)
[2020-03-15] MEDS: TRIAMCINOLONE 0.1% CREAM 15 GM TUBE TOP SCH (09:35)
[2020-03-15] MEDS ORDERED: HEPARIN LOCK FLUSH 500 UNIT/5 ML SYRINGE IV ONE (11:58)
[2020-03-15 12:17] VITALS: BP 106/70
== END 2020-03-15 12:37 | disposition home health service (06) | DRG 813 ==
LOC: N.ED 13:02 → N.EDINP 13:02 → N.4E 18:21
PROVIDERS: ADMIT Internal Medicine; ATTEND Internal Medicine

== ENCOUNTER 2020-05-16 10:23 | Inpatient (IN) ==
[2020-05-16] MEDS ORDERED: SODIUM CHLORIDE 0.9% 1,000 ML IV STA (12:11)
[2020-05-16 13:14] LABS: Basophils # 0.1 10*3/uL (0.0-0.2); Basophils % 1.1 % (0.0-0.8); Eosinophils # 0.2 10*3/uL (0.0-0.87); Eosinophils % 2.2 % (0.00-10.9); Hematocrit 35.8 VOL% (42.0-52.0); Hemoglobin 11.5 GM/DL (14.0-18.0); Immature Granulocytes Absolute 0.33 #; Lymphocytes # 0.6 10*3/uL (1.4-4.0); Lymphocytes % 7.7 % (21.2-54.2); Mean Corpuscular HGB Conc 32.1 GM/DL (32-36); Mean Corpuscular Volume 82.3 FL (87-102); Mean Platelet Volume 11.2 FL (9.6-12.0); Platelet Count 239 T/CUMM (130-400); Red Blood Count 4.35 MC/CUMM (3.8-5.5); Red Cell Distribution Width 14.6 % (9.3-17.3); White Blood Count 8.2 T/CUMM (4-12)
[2020-05-16 13:28] LABS: Albumin 2.8 G/DL (3.4-5.0); Bilirubin,Total 1.2 MG/DL (0.2-1.0); Calcium 9.3 MG/DL (8.5-10.1); Osmolality,Calculated 272.2 MOS/KG (273-304); Potassium 4.1 MMOL/L (3.5-5.1); Total Protein 7.9 G/DL (6.4-8.3)
[2020-05-16] MEDS ORDERED: ONDANSETRON 4 MG/2 ML VIAL IV STA (13:44)
[2020-05-16] MEDS ORDERED: HYDROmorphone 2 MG/1 ML VIAL IV STA (13:44)
[2020-05-16] MEDS ORDERED: ACETAMINOPHEN 325 MG TABLET PO PRN (14:14)
[2020-05-16] MEDS ORDERED: INSULIN GLARGINE 100 UNIT/ML SUBCUT PRN (14:55)
[2020-05-16] MEDS: SODIUM CHLORIDE 0.9% 1,000 ML IV SCH ×2 (15:55→23:09)
[2020-05-16] MEDS: VANCOMYCIN 50 MG/ML 60 ML/BOTTLE PO SCH ×3 (16:47→20:31)
[2020-05-16] MEDS: HYDROmorphone 2 MG/1 ML VIAL IV PRN ×2 (16:53→23:08)
[2020-05-16] MEDS: DOCUSATE SODIUM 100 MG CAPSULE PO SCH ×2 (20:31)
[2020-05-16] MEDS: PANTOPRAZOLE 40 MG TABLET PO SCH (20:31)
[2020-05-16] MEDS: TRIAMCINOLONE 0.1% CREAM 15 GM TUBE TOP SCH ×2 (20:31)
[2020-05-17] MEDS: HYDROmorphone 2 MG/1 ML VIAL IV PRN ×4 (05:33→22:18)
[2020-05-17] MEDS: ONDANSETRON 4 MG/2 ML VIAL IV PRN ×3 (05:35→17:35)
[2020-05-17 06:01] LABS: Basophils # 0.1 10*3/uL (0.0-0.2); Basophils % 1.1 % (0.0-0.8); Eosinophils # 0.2 10*3/uL (0.0-0.87); Eosinophils % 2.6 % (0.00-10.9); Hematocrit 28.1 VOL% (42.0-52.0); Immature Granulocytes % 4.2 %; Immature Granulocytes Absolute 0.26 #; Lymphocytes # 0.5 10*3/uL (1.4-4.0); Lymphocytes % 7.5 % (21.2-54.2); Mean Corpuscular HGB Conc 31.7 GM/DL (32-36); Mean Corpuscular Volume 83.6 FL (87-102); Monocytes % 10.4 % (1.7-12.7); Neutrophils % 74.2 % (38.7-73.9); Red Cell Distribution Width 14.6 % (9.3-17.3); White Blood Count 6.2 T/CUMM (4-12)
[2020-05-17 06:11] LABS: Hemoglobin 8.9 GM/DL (14.0-18.0); Platelet Count 161 T/CUMM (130-400); Red Blood Count 3.36 MC/CUMM (3.8-5.5)
[2020-05-17 06:27] LABS: Calcium 8.2 MG/DL (8.5-10.1); Osmolality,Calculated 273.8 MOS/KG (273-304)
[2020-05-17] MEDS: SODIUM CHLORIDE 0.9% 1,000 ML IV SCH ×3 (07:12→23:34)
[2020-05-17] MEDS: TRIAMCINOLONE 0.1% CREAM 15 GM TUBE TOP SCH ×3 (08:30→20:16)
[2020-05-17] MEDS: CITALOPRAM 20 MG TABLET PO SCH (09:57)
[2020-05-17] MEDS: PANTOPRAZOLE 40 MG TABLET PO SCH ×2 (09:57→20:16)
[2020-05-17] MEDS: MORPHINE ER 15 MG TABLET PO SCH ×2 (09:57→20:16)
[2020-05-17] MEDS ORDERED: PROMETHAZINE 25 MG/1 ML VIAL IM PRN (22:09)
[2020-05-18] MEDS: HYDROmorphone 2 MG/1 ML VIAL IV PRN (04:56)
[2020-05-18] MEDS: SODIUM CHLORIDE 0.9% 1,000 ML IV SCH ×3 (07:51→23:45)
[2020-05-18] MEDS: MORPHINE ER 15 MG TABLET PO SCH ×2 (08:50→20:46)
[2020-05-18] MEDS: CITALOPRAM 20 MG TABLET PO SCH (08:51)
[2020-05-18] MEDS: PANTOPRAZOLE 40 MG TABLET PO SCH ×2 (08:51→20:45)
[2020-05-18] MEDS ORDERED: ONDANSETRON 4 MG/2 ML VIAL IV PRN (09:21)
[2020-05-18] MEDS ORDERED: HYDROmorphone 2 MG/1 ML VIAL IV PRN (09:21)
[2020-05-18] MEDS: TRIAMCINOLONE 0.1% CREAM 15 GM TUBE TOP SCH ×3 (09:32→20:46)
[2020-05-18] MEDS ORDERED: fentaNYL 50 MCG/HR PATCH TRANSDERM SCH (09:45)
[2020-05-18] MEDS: METOCLOPRAMIDE 10 MG/2 ML VIAL IV SCH ×2 (12:09→16:13)
[2020-05-19] MEDS: SODIUM CHLORIDE 0.9% 1,000 ML IV SCH ×2 (07:48→16:20)
[2020-05-19] MEDS: PANTOPRAZOLE 40 MG TABLET PO SCH ×2 (08:35→20:13)
[2020-05-19] MEDS: MORPHINE ER 15 MG TABLET PO SCH (08:35)
[2020-05-19] MEDS: CITALOPRAM 20 MG TABLET PO SCH (08:35)
[2020-05-19] MEDS: METOCLOPRAMIDE 10 MG/2 ML VIAL IV SCH ×3 (08:39→16:19)
[2020-05-19] MEDS: TRIAMCINOLONE 0.1% CREAM 15 GM TUBE TOP SCH ×2 (09:40→15:17)
[2020-05-20] MEDS: TRIAMCINOLONE 0.1% CREAM 15 GM TUBE TOP SCH (00:04)
[2020-05-20] MEDS: SODIUM CHLORIDE 0.9% 1,000 ML IV SCH ×2 (00:16→09:32)
[2020-05-20] MEDS: PANTOPRAZOLE 40 MG TABLET PO SCH (09:33)
[2020-05-20] MEDS: METOCLOPRAMIDE 10 MG/2 ML VIAL IV SCH (09:34)
[2020-05-20] MEDS: CITALOPRAM 20 MG TABLET PO SCH (09:37)
[2020-05-20 11:02] VITALS: BP 157/90
== END 2020-05-20 12:31 | disposition hospice, home (50) | DRG 392 ==
LOC: N.EDINP 10:23 → N.ED 10:23 → N.3E 14:47
PROVIDERS: ADMIT Internal Medicine; ATTEND Internal Medicine

== ENCOUNTER 2020-05-30 17:19 | Observation (INO) ==
[2020-05-30] MEDS ORDERED: LACTATED RINGERS 1,000 ML IV ONE (17:55)
[2020-05-30 18:50] LABS: Basophils # 0.1 10*3/uL (0.0-0.2); Basophils % 0.6 % (0.0-0.8); Eosinophils # 0.1 10*3/uL (0.0-0.87); Eosinophils % 0.5 % (0.00-10.9); Hematocrit 28.6 VOL% (42.0-52.0); Immature Granulocytes % 6.5 %; Immature Granulocytes Absolute 0.81 #; Lymphocytes # 0.4 10*3/uL (1.4-4.0); Lymphocytes % 3.1 % (21.2-54.2); Mean Corpuscular HGB Conc 31.5 GM/DL (32-36); Mean Corpuscular Volume 83.9 FL (87-102); Monocytes % 4.4 % (1.7-12.7); Neutrophils % 84.9 % (38.7-73.9); Platelet Count 144 T/CUMM (130-400); Red Blood Count 3.41 MC/CUMM (3.8-5.5); Red Cell Distribution Width 16.1 % (9.3-17.3); White Blood Count 12.5 T/CUMM (4-12)
[2020-05-30 19:16] LABS: Albumin 2.2 G/DL (3.4-5.0); Bilirubin,Total 1.7 MG/DL (0.2-1.0); Calcium 8.1 MG/DL (8.5-10.1); Osmolality,Calculated 275.8 MOS/KG (273-304); Total Protein 6.3 G/DL (6.4-8.3)
[2020-05-30 19:19] LABS: Eosinophils 1 % (0-10); Lymphocytes 1 % (20-55); Microcytosis 1+; Myelocytes 6 %; Nucleated Red Blood Cells 1 (0-5); Segmented Neutrophils 89 % (50-85); Total Cells Counted 100
[2020-05-30 19:20] LABS: Anisocytosis 1+
[2020-05-30 19:21] LABS: Platelet Estimate Decreased; Polychromasia Few
[2020-05-30] MEDS ORDERED: ACETAMINOPHEN 325 MG TABLET PO PRN (19:35)
[2020-05-30] MEDS ORDERED: ONDANSETRON 4 MG/2 ML VIAL IV PRN (19:35)
[2020-05-30] MEDS ORDERED: ONDANSETRON ODT 4 MG TABLET PO PRN (19:36)
[2020-05-30] MEDS ORDERED: diphenhydrAMINE CAP 25 MG CAPSULE PO PRN (19:36)
[2020-05-30] MEDS ORDERED: fentaNYL 75 MCG/HR PATCH TRANSDERM SCH (21:00)
[2020-05-30] MEDS: DOCUSATE SODIUM 100 MG CAPSULE PO SCH (22:20)
[2020-05-30] MEDS: SODIUM CHLORIDE 0.9% 1,000 ML IV SCH (22:39)
[2020-05-31 04:35] LABS: Basophils # 0.1 10*3/uL (0.0-0.2); Basophils % 0.6 % (0.0-0.8); Eosinophils # 0.1 10*3/uL (0.0-0.87); Eosinophils % 0.9 % (0.00-10.9); Hematocrit 27.4 VOL% (42.0-52.0); Hemoglobin 8.5 GM/DL (14.0-18.0); Immature Granulocytes Absolute 0.72 #; Lymphocytes # 0.5 10*3/uL (1.4-4.0); Lymphocytes % 4.3 % (21.2-54.2); Mean Platelet Volume 10.6 FL (9.6-12.0); Monocytes % 5.9 % (1.7-12.7); Neutrophils % 81.3 % (38.7-73.9); Platelet Count 141 T/CUMM (130-400); Red Blood Count 3.26 MC/CUMM (3.8-5.5); Red Cell Distribution Width 16.1 % (9.3-17.3); White Blood Count 10.4 T/CUMM (4-12)
[2020-05-31 04:53] LABS: Albumin 2.1 G/DL (3.4-5.0); Bilirubin,Total 1.9 MG/DL (0.2-1.0); Calcium 8.1 MG/DL (8.5-10.1); Osmolality,Calculated 278.5 MOS/KG (273-304); Total Protein 5.7 G/DL (6.4-8.3)
[2020-05-31 05:04] LABS: Hypochromasia 1+; Lymphocytes 3 % (20-55); Microcytosis 1+; Platelet Estimate Adequate; Segmented Neutrophils 95 % (50-85); Total Cells Counted 100
[2020-05-31] MEDS: SODIUM CHLORIDE 0.9% 1,000 ML IV SCH (06:20)
[2020-05-31 08:42] VITALS: BP 132/77
[2020-05-31] MEDS ORDERED: fentaNYL 75 MCG/HR PATCH TRANSDERM SCH (09:00)
[2020-05-31] MEDS ORDERED: CITALOPRAM 20 MG TABLET PO SCH (09:00)
[2020-05-31] MEDS ORDERED: PANTOPRAZOLE 40 MG TABLET PO SCH (09:00)
[2020-05-31] MEDS: DOCUSATE SODIUM 100 MG CAPSULE PO SCH (09:03)
[2020-05-31] MEDS ORDERED: HEPARIN LOCK FLUSH 500 UNIT/5 ML SYRINGE IV ONE ×2 (09:33→10:10)
== END 2020-05-31 09:40 | disposition hospice, home (50) ==
LOC: EDUNIT# → EDBD → N.ED 17:19 → N.EDINP 17:19
PROVIDERS: ADMIT Internal Medicine; ATTEND Internal Medicine